=== PATIENT | male | born 1960 | race Caucasian/White ===

== ENCOUNTER 2016-11-12 10:19 | Inpatient (IN) | payer SELFPAY ==
[2016-11-12] MEDS ORDERED: LIDOCAINE 2% VISCOUS SOLN 20 ML UDCUP PO ONE (11:20)
[2016-11-12] MEDS ORDERED: MAG HYDROX/AL HYDROX/SIMETH SUSP 30 ML UDCUP PO ONE (11:20)
--- NOTE | 2016-11-12 11:21 | ER Document Report ---
ED General - General Mode of Arrival: Ambulatory Information source: Patient - HPI Patient complains to provider of: Esophageal irritation and epigastric abdominal pain Onset: Other - 4-5 days ago Associated symptoms: Other - see above <JOCELYNN MOSES - Last Filed: 11/12/16 11:29> <JS EL - Last Filed: 11/12/16 12:07> - General Chief Complaint: Chest Wall Pain Stated Complaint: CHEST PAIN Notes: 56 year old male with no prior medical problems presents to the ED complaining of having esophageal irritation and epigastric abdominal pain for the past 4-5 days. Patient states that he recently had a tooth abscess that he was treating with ibuprofen and Tylenol. Patient claims that he has been taking a lot of Tylenol and ibuprofen and states that he finished a whole bottle of Tylenol in the past 5 days. Patient also claims to have been taking Amoxicillin from his room mate for the tooth abscess. Patient states that the abscess has cleared up , but he began to experience epigastric abdominal pain and cramping and lightheadedness shortly after. Patient has taken lacy seltzer and antacid secondary to the acid reflux he is developing. Patient admits to cigarette smoking (1 ppd) and states that he quit drinking 1 week ago when his abdominal symptoms began. (JOCELYNN MOSES) - Related Data Allergies/Adverse Reactions: No Known Allergies Allergy (Unverified 11/12/16 11:10) Past Medical History - General Information source: Patient - Social History Smoking Status: Current Every Day Smoker Cigarette use (# per day): Yes - 1 ppd Frequency of alcohol use: former Family History: Reviewed & Not Pertinent - Medical History Medical History: Negative Surgical Hx: Negative <JOCELYNN MOSES - Last Filed: 11/12/16 11:29> Review of Systems - Review of Systems Constitutional: See HPI, Recent illness - tooth abscess EENT: No symptoms reported Cardiovascular: See HPI, Lightheaded Respiratory: No symptoms reported Gastrointestinal: See HPI, Abdominal pain - epigastric abdominal pain and cramping, Other - acid reflux Genitourinary: No symptoms reported Male Genitourinary: No symptoms reported Musculoskeletal: No symptoms reported Skin: No symptoms reported Hematologic/Lymphatic: No symptoms reported Neurological/Psychological: No symptoms reported -: Yes All other systems reviewed and negative <JOCELYNN MOSES - Last Filed: 11/12/16 11:29> Physical Exam - General General appearance: Alert In distress: None - HEENT Head: Normocephalic, Atraumatic Eyes: Normal Extraocular movements intact: Yes Pupils: PERRL - Respiratory Respiratory status: No respiratory distress Breath sounds: Normal - Cardiovascular Rhythm: Regular Heart sounds: No: Normal auscultation Murmur: Yes - loud split S1 systolic murmur - Abdominal Inspection: Normal Distension: No distension Tenderness: Tender - epigastric - Back Back: Normal - Extremities General upper extremity: Normal inspection, Normal ROM General lower extremity: Normal inspection, Normal ROM - Neurological Neuro grossly intact: Yes - Psychological Associated symptoms: Normal affect, Normal mood - Skin Skin Temperature: Warm Skin Moisture: Dry Skin Color: Normal <JOCELYNN MOSES - Last Filed: 11/12/16 11:29> <JS EL - Last Filed: 11/12/16 12:07> - Vital signs Vitals: Temp Pulse Resp BP Pulse Ox 97.9 F 100 18 142/78 H 100 11/12/16 10:23 11/12/16 10:23 11/12/16 10:23 11/12/16 10:23 11/12/16 10:23 (JOCELYNN MOSES) (JS EL) Course - Laboratory Result Diagrams: 11/12/16 11:00 11/12/16 11:00 <JOCELYNN MOSES - Last Filed: 11/12/16 11:29> - Laboratory Result Diagrams: 11/12/16 11:00 11/12/16 11:00 - EKG Interpretation by Me EKG shows normal: Sinus rhythm, [place], Intervals, QRS Complexes, ST-T Waves Rate: Normal - 91 Rhythm: NSR When compared to previous EKG there are: Previous EKG unavailable - Consults Dr. Pablo Time consulted: 12:00 Consulted provider: will come to ER Dr. Uriarte Time consulted: 12:05 Consulted provider: will see as inpatient <JS EL - Last Filed: 11/12/16 12:07> - Vital Signs Vital signs: Temp Pulse Resp BP Pulse Ox 97.9 F 100 13 142/78 H 94 11/12/16 10:23 11/12/16 10:23 11/12/16 11:02 11/12/16 10:23 11/12/16 11:02 (JOCELYNN MOSES) (JS EL) - Laboratory Laboratory results interpreted by me: 11/12/16 11/12/16 11/12/16 11:00 11:00 11:50 RBC 1.94 L Hgb 6.7 L Hct 18.9 L MCH 34.4 H Potassium 3.5 L Carbon Dioxide 31 H BUN 22 H Glucose 111 H Total Protein 6.1 L Albumin 3.2 L Crossmatch See Detail (JS EL) Critical Care Note - Critical Care Note Total time excluding time spent on procedures (mins): 30 <JS EL - Last Filed: 11/12/16 12:07> Discharge <JOCELYNN MOSES - Last Filed: 11/12/16 11:29> - Discharge Admitting Provider: Hospitalist Unit Admitted: IMCU <JS EL - Last Filed: 11/12/16 12:07> - Discharge Clinical Impression: Upper GI bleed, Acute blood loss anemia Condition: Stable Disposition: ADMITTED INPATIENT Scribe Attestation: 11/12/16 12:04 I personally performed the services described in the documentation, reviewed and edited the documentation which was dictated to the scribe in my presence, and it accurately records my words and actions. (JS EL) Scribe Documentation - Scribe Written by Denie:: Luis Marshall, 11/12/2016 1139 acting as scribe for :: Linda <JOCELYNN MOSES - Last Filed: 11/12/16 11:29>
[2016-11-12 11:29] LABS: ABSOLUTE EOSINOPHILS # (AUTO) 0.1 10^3/uL (0.0-0.6); ABSOLUTE LYMPHOCYTES (AUTO) 1.9 10^3/uL (0.5-4.7); ABSOLUTE NEUT (AUTO) 5.9 10^3/uL (1.7-8.2); BASOPHILS % (AUTO) 0.5 % (0-2); EOSINOPHILS % (AUTO) 1.1 % (0-6); HEMATOCRIT 18.9 % (37.9-51.0); HGB HCT DIFFERENCE 1.2; LYMPHOCYTES % (AUTO) 20.8 % (13-45); MEAN CORPUSCULAR HEMOGLOBIN 34.4 pg (27.0-33.4); MEAN CORPUSCULAR HGB CONC 35.4 g/dL (32.0-36.0); MEAN CORPUSCULAR VOLUME 97 fl (80-97); MONOCYTES % (AUTO) 11.2 % (3-13); RED BLOOD COUNT 1.94 10^6/uL (4.35-5.55); RED CELL DISTRIBUTION WIDTH 13.7 % (11.5-14.0); SEGMENTED NEUTROPHILS % (AUTO) 66.4 % (42-78)
[2016-11-12 11:32] LABS: HEMOGLOBIN 6.7 g/dL (13.5-17.0)
[2016-11-12 11:36] LABS: ALANINE AMINOTRANSFERASE 42 U/L (21-72); ALBUMIN 3.2 g/dL (3.5-5.0); ALKALINE PHOSPHATASE 54 U/L (38-126); ANION GAP 5 (5-19); ASPARTATE AMINO TRANSFERASE 34 U/L (17-59); BILIRUBIN,TOTAL 0.3 mg/dL (0.2-1.3); BLOOD UREA NITROGEN 22 mg/dL (7-20); CALCIUM 8.6 mg/dL (8.4-10.2); CARBON DIOXIDE 31 mmol/L (22-30); CHLORIDE 102 mmol/L (98-107); CREATININE RESULT 0.78 mg/dL (0.52-1.25); GLUCOSE 111 mg/dL (75-110); LIPASE 76.7 U/L (23-300); POTASSIUM 3.5 mmol/L (3.6-5.0); SODIUM 137.5 mmol/L (137-145); TOTAL PROTEIN 6.1 g/dL (6.3-8.2)
[2016-11-12] MEDS ORDERED: NORMAL SALINE 250 ML IV PRN (11:36)
[2016-11-12] MEDS ORDERED: NORMAL SALINE 1000 ML 1,000 ML IV ONE ×2 (11:37→13:44)
[2016-11-12] MEDS ORDERED: PANTOPRAZOLE SODIUM 40 MG VIAL IV ONE (11:39)
[2016-11-12] MEDS ORDERED: MORPHINE SULFATE 10 MG/ML INJ IV ONE (12:07)
[2016-11-12] MEDS ORDERED: ONDANSETRON HCL INJ/PF 4 MG/2 ML SDV IV ONE (12:07)
[2016-11-12] MEDS ORDERED: ONDANSETRON HCL INJ/PF 4 MG/2 ML SDV IV PRN (13:39)
--- NOTE | 2016-11-12 14:07 | PDOC H&P ---
History of Present Illness Admission Date/PCP: 11/12/16 13:36 Patient complains of: Lightheadedness History of Present Illness: AMAYA DYE is a 56 year old male, with a history of gastroesophageal reflux disease presents to the hospital because of lightheadedness about 2 days duration. The patient reports that about a week ago he was suffering from dental abscess were he has taken amoxicillin and eventual frequent ibuprofen use and acetaminophen. 5 days ago patient started to develop epigastric pain and melena. There is a little bit of nausea but no vomiting. Patient still able to eat regular food. Yesterday patient started to develop lightheadedness. The patient continues to work and apparently the lightheadedness got worse which the patient presents to the emergency room. Hemoglobin is 6.7. The patient was then referred for admission. There is no hematochezia, hematemesis, syncope, or dizziness. The patient's toothache and jaw pain resolved. There is no chills or fever associated. He denies any chest pain. He does have shortness of breath on exertion for the past 2 days. Past Medical History GI Medical History: Reports: Gastroesophageal Reflux Disease Past Surgical History Past Surgical History: Reports: None Social History Information Source: Patient Smoking Status: Current Every Day Smoker Amount of Alcoholic Beverages Per Day: moderate, 2-3 cans of beer, last intake about a week ago. Hx Recreational Drug Use: No Drugs: None Family History Family History: DM, Other - Heart disease Parental Family History Reviewed: Yes Children Family History Reviewed: Yes Sibling(s) Family History Reviewed.: Yes Medication/Allergy Allergies/Adverse Reactions: No Known Allergies Allergy (Unverified 11/12/16 11:10) Review of Systems Constitutional: PRESENT: weakness - Generalized. ABSENT: chills, fever(s), headache(s), weight gain, weight loss Eyes: ABSENT: visual disturbances Ears: ABSENT: hearing changes Nose, Mouth, and Throat: PRESENT: mouth pain - Resolved. ABSENT: headache(s), sore throat Cardiovascular: PRESENT: dyspnea on exertion. ABSENT: chest pain, edema, orthropnea, palpitations Respiratory: ABSENT: cough, hemoptysis Gastrointestinal: PRESENT: abdominal pain, melena, nausea. ABSENT: coffee ground emesis, constipation, diarrhea, hematemesis, hematochezia, vomiting Genitourinary: ABSENT: difficulty urinating, dysuria, hematuria Musculoskeletal: ABSENT: joint swelling Integumentary: ABSENT: pruritus, rash, wounds Neurological: ABSENT: abnormal gait, abnormal speech, confusion, dizziness, focal weakness, syncope Psychiatric: ABSENT: anxiety, depression, homidical ideation, suicidal ideation Endocrine: ABSENT: cold intolerance, heat intolerance, polydipsia, polyuria Hematologic/Lymphatic: ABSENT: easy bleeding, easy bruising Physical Exam Vital Signs: Temp Pulse Resp BP Pulse Ox 97.9 F 100 18 139/87 H 97 11/12/16 10:23 11/12/16 10:23 11/12/16 13:01 11/12/16 13:00 11/12/16 13:01 General appearance: PRESENT: no acute distress, cooperative, well-developed, well-nourished Head exam: PRESENT: atraumatic, normocephalic Eye exam: PRESENT: conjunctiva pale, EOMI, PERRLA. ABSENT: scleral icterus Ear exam: PRESENT: normal external ear exam. ABSENT: drainage Mouth exam: PRESENT: moist, tongue midline Teeth exam: PRESENT: dental caries Throat exam: ABSENT: post pharyngeal erythema, tonsillar erythema Neck exam: ABSENT: carotid bruit, JVD, lymphadenopathy, thyromegaly Respiratory exam: PRESENT: clear to auscultation susan, unlabored. ABSENT: rales , rhonchi, wheezes Cardiovascular exam: PRESENT: RRR, +S1, +S2, systolic murmur - On the aortic area likely flow murmur. ABSENT: diastolic murmur, gallop, rubs Pulses: PRESENT: normal dorsalis pedis pul Vascular exam: PRESENT: normal capillary refill GI/Abdominal exam: PRESENT: normal bowel sounds, soft, tenderness - Epigastric area. ABSENT: distended, guarding, mass, organolmegaly, rebound Rectal exam: PRESENT: deferred Extremities exam: PRESENT: full ROM. ABSENT: calf tenderness, clubbing, pedal edema Neurological exam: PRESENT: alert, awake, oriented to person, oriented to place , oriented to time, oriented to situation Psychiatric exam: PRESENT: appropriate affect, normal mood. ABSENT: homicidal ideation, suicidal ideation Skin exam: PRESENT: dry, intact, warm. ABSENT: cyanosis, rash Results Impressions: Acute Abdomen Series 11/12/16 12:05 IMPRESSION: NO RADIOGRAPHIC EVIDENCE FOR ACUTE ABDOMINAL DISEASE. Assessment & Plan - Diagnosis (1) Acute blood loss anemia Is this a current diagnosis for this admission?: Yes (2) Upper GI bleed Is this a current diagnosis for this admission?: Yes (3) Hypokalemia Is this a current diagnosis for this admission?: Yes (4) GERD (gastroesophageal reflux disease) Qualifiers: Esophagitis presence: esophagitis presence not specified Qualified Code(s): K21.9 - Gastro-esophageal reflux disease without esophagitis Is this a current diagnosis for this admission?: Yes - Time Time Spent: 50 to 70 Minutes - Inpatient Certification Based on my medical assessment, after consideration of the patient's comorbidities, presenting symptoms, or acuity I expect that the services needed warrant INPATIENT care.: Yes I certify that my determination is in accordance with my understanding of Medicare's requirements for reasonable and necessary INPATIENT services [42 CFR 412.3e].: Yes Medical Necessity: Significant Comorbidiites Make Outpatient Treatment Too Risky , Need Close Monitoring Due to Risk of Patient Decompensation, Need For IV Fluids, Need for Surgery, Risk of Complication if Not Cared For in Hospital, Risk of Diagnosis Which Will Require Inpatient Eval/Care/Monitoring - Plan Summary Plan Summary: The patient will be admitted to [facility]. I will keep the patient nothing by mouth except medication. Loading dose of Protonix was given in the emergency room. We will continue the drip for 8 mg per hour. Gastroenterology was consulted. Dr. Uriarte will evaluate the patient. In the meantime I will correct the patient 's hypokalemia and monitor electrolytes. TORIE hose and SCDs will be placed for DVT prophylaxis. Total of 3 units of packed RBC will be given. Further testing depends on the initial evaluation and per specialty recommendation as outlined above.
[2016-11-12] MEDS: NORMAL SALINE 1000 ML 1,000 ML IV PRN ×2 (15:09→16:49)
[2016-11-12] MEDS: POTASSI CL 20 MEQ/50 ML RIDER 20 MEQ/50 ML RTUPB IV SCH ×3 (16:45→20:26)
[2016-11-12] MEDS ORDERED: INFLUENZA ADLT QUAD (36MOS+) 2016-17 VAC 0.5 ML SYR IM PRN (17:28)
--- NOTE | 2016-11-12 19:29 | PDOC CONSULTATION ---
Consultation Consult Date: 11/12/16 Attending physician:: STAS TRIPP Consult reason:: Acute anemia secondary to upper GI blood loss History of Present Illness Admission Date/PCP: 11/12/16 13:39 History of Present Illness: Consult was received from the hospitalist physician. Patient presented to the emergency room when he started to feel lightheaded. He had been taking several days of a combination of NSAIDs along with Tylenol for her toothache. He apparently admits that he got some antibiotics from his neighbor. It did make his tooth pain better but then started to develop epigastric pain. He then had coffee grounds and passed some black stool. He was admitted from the emergency room. His hemoglobin is 6.7. He is otherwise stable. He does have a history of gastroesophageal reflux disease. He denies any chest pain or shortness of breath. Patient states no nausea or vomiting. Denies any dysphagia or odynophagia. Past Medical History GI Medical History: Reports: Gastroesophageal Reflux Disease Past Surgical History Past Surgical History: Reports: None Social History Smoking Status: Current Every Day Smoker Cigarettes Packs Per Day: 1 Frequency of Alcohol Use: Occasional Hx Recreational Drug Use: No Drugs: None Hx Prescription Drug Abuse: No Family History Family History: DM, Other - Heart disease Parental Family History Reviewed: Yes Children Family History Reviewed: Unknown Sibling(s) Family History Reviewed.: Unknown Medication/Allergy Home Medications: No Home Medications 11/12/16 Allergies/Adverse Reactions: No Known Allergies Allergy (Unverified 11/12/16 11:10) Review of Systems Constitutional: PRESENT: weakness. ABSENT: fever(s), headache(s), night sweats Eyes: ABSENT: visual disturbances Ears: ABSENT: hearing changes Nose, Mouth, and Throat: PRESENT: mouth pain Cardiovascular: ABSENT: chest pain, orthropnea, palpitations Respiratory: ABSENT: dyspnea, hemoptysis Gastrointestinal: PRESENT: heartburn, melena. ABSENT: diarrhea, dysphagia, hematemesis, nausea, vomiting Genitourinary: ABSENT: dysuria, hematuria Musculoskeletal: ABSENT: joint swelling Integumentary: ABSENT: pruritus, rash Neurological: ABSENT: numbness, syncope, tremor(s), vertigo Psychiatric: ABSENT: anxiety Endocrine: ABSENT: polydipsia, polyphagia, polyuria Hematologic/Lymphatic: ABSENT: easy bruising Physical Exam Vital Signs: Temp Pulse Resp BP Pulse Ox 99.7 F 93 14 111/65 95 11/12/16 16:50 11/12/16 18:48 11/12/16 16:50 11/12/16 16:50 11/12/16 16:50 Intake & Output 11/11/16 11/12/16 11/13/16 06:59 06:59 06:59 Intake Total 775 Output Total 0 Balance 775 Weight 70.6 kg General appearance: PRESENT: no acute distress, thin Head exam: PRESENT: atraumatic, normocephalic Eye exam: PRESENT: EOMI, PERRLA. ABSENT: nystagmus, periorbital swelling, scleral icterus Mouth exam: PRESENT: moist, neck supple Teeth exam: PRESENT: dental tenderness, poor dentation Throat exam: ABSENT: tonsillogmegaly Neck exam: ABSENT: meningismus, tenderness, thyromegaly Respiratory exam: PRESENT: clear to auscultation susan, symmetrical, unlabored. ABSENT: accessory muscle use, wheezes Cardiovascular exam: PRESENT: RRR, +S1, +S2. ABSENT: gallop, rubs, systolic murmur Pulses: PRESENT: normal carotid pulses GI/Abdominal exam: PRESENT: hypoactive bowel sounds, soft. ABSENT: Tamez's sign, rebound, rigid, tenderness Gentrourinary exam: ABSENT: lesions Extremities exam: ABSENT: joint swelling Musculoskeletal exam: PRESENT: full ROM Neurological exam: PRESENT: alert, awake, oriented to person, oriented to place , oriented to time, oriented to situation, reflexes normal, CN II-XII grossly intact Psychiatric exam: PRESENT: appropriate affect Skin exam: PRESENT: normal color. ABSENT: mottled, pallor, petechiae, urticaria , vesicles Results Impressions: Acute Abdomen Series 11/12/16 12:05 IMPRESSION: NO RADIOGRAPHIC EVIDENCE FOR ACUTE ABDOMINAL DISEASE. Assessment & Plan - Diagnosis (1) Upper GI bleed Is this a current diagnosis for this admission?: YesPlan: Patient likely has upper GI bleeding. Due to NSAID use. He'll need an upper endoscopy. He does have an elevated BUN/creatinine to creatinine ratio. Risks , benefits and alternatives of the procedure including risks of bleeding, perforation requiring surgery I explained to the patient detail and informed consent is obtained. Patient wants to proceed. Continue transfusion. Start PPI. - Time Time Spent: 50 to 70 Minutes
[2016-11-12] MEDS: ACETAMINOPHEN 325 MG TABLET PO PRN (19:46)
--- NOTE | 2016-11-12 21:37 | EKG REPORT ---
SEVERITY:- NORMAL ECG - SINUS RHYTHM : Confirmed by: Darren Carrasco 12-Nov-2016 21:36:11
[2016-11-12] MEDS: NORMAL SALINE 100 ML with PANTOPRAZOLE SODIUM 80 MG IV PRN ×2 (22:24)
[2016-11-13 01:53] LABS: ABSOLUTE EOSINOPHILS # (AUTO) 0.1 10^3/uL (0.0-0.6); ABSOLUTE LYMPHOCYTES (AUTO) 2.4 10^3/uL (0.5-4.7); ABSOLUTE MONOCYTES (AUTO) 1.2 10^3/uL (0.1-1.4); ABSOLUTE NEUT (AUTO) 6.1 10^3/uL (1.7-8.2); BASOPHILS % (AUTO) 0.4 % (0-2); EOSINOPHILS % (AUTO) 1.3 % (0-6); HEMATOCRIT 23.5 % (37.9-51.0); HEMOGLOBIN 8.1 g/dL (13.5-17.0); HGB HCT DIFFERENCE 0.8; LYMPHOCYTES % (AUTO) 24.1 % (13-45); MEAN CORPUSCULAR HEMOGLOBIN 32.5 pg (27.0-33.4); MEAN CORPUSCULAR HGB CONC 34.4 g/dL (32.0-36.0); MEAN CORPUSCULAR VOLUME 95 fl (80-97); MONOCYTES % (AUTO) 12.5 % (3-13); RED BLOOD COUNT 2.49 10^6/uL (4.35-5.55); RED CELL DISTRIBUTION WIDTH 14.6 % (11.5-14.0); SEGMENTED NEUTROPHILS % (AUTO) 61.7 % (42-78); WHITE BLOOD COUNT 9.9 10^3/uL (4.0-10.5)
[2016-11-13 05:20] LABS: ABSOLUTE BASOPHILS # (AUTO) 0.1 10^3/uL (0.0-0.2); ABSOLUTE EOSINOPHILS # (AUTO) 0.1 10^3/uL (0.0-0.6); ABSOLUTE LYMPHOCYTES (AUTO) 2.3 10^3/uL (0.5-4.7); ABSOLUTE MONOCYTES (AUTO) 1.3 10^3/uL (0.1-1.4); ABSOLUTE NEUT (AUTO) 6.7 10^3/uL (1.7-8.2); BASOPHILS % (AUTO) 0.5 % (0-2); EOSINOPHILS % (AUTO) 1.2 % (0-6); HEMATOCRIT 23.9 % (37.9-51.0); HEMOGLOBIN 8.2 g/dL (13.5-17.0); HGB HCT DIFFERENCE 0.7; MEAN CORPUSCULAR HEMOGLOBIN 32.8 pg (27.0-33.4); MEAN CORPUSCULAR HGB CONC 34.5 g/dL (32.0-36.0); MEAN CORPUSCULAR VOLUME 95 fl (80-97); MONOCYTES % (AUTO) 12.5 % (3-13); RED BLOOD COUNT 2.52 10^6/uL (4.35-5.55); RED CELL DISTRIBUTION WIDTH 15.1 % (11.5-14.0); SEGMENTED NEUTROPHILS % (AUTO) 63.8 % (42-78); WHITE BLOOD COUNT 10.5 10^3/uL (4.0-10.5)
[2016-11-13 05:39] LABS: ANION GAP 5 (5-19); BLOOD UREA NITROGEN 13 mg/dL (7-20); CALCIUM 8.7 mg/dL (8.4-10.2); CARBON DIOXIDE 26 mmol/L (22-30); CHLORIDE 107 mmol/L (98-107); CREATININE RESULT 0.78 mg/dL (0.52-1.25); GLUCOSE 91 mg/dL (75-110); PHOSPHORUS 3.2 mg/dL (2.5-4.5); SODIUM 137.5 mmol/L (137-145)
[2016-11-13] MEDS: ACETAMINOPHEN 325 MG TABLET PO PRN (05:39)
[2016-11-13 05:48] LABS: POTASSIUM 4.4 mmol/L (3.6-5.0)
[2016-11-13] MEDS: NORMAL SALINE 100 ML with PANTOPRAZOLE SODIUM 80 MG IV PRN ×2 (07:01)
[2016-11-13] MEDS ORDERED: TRAMADOL HCL 50 MG TABLET PO PRN (10:38)
[2016-11-13] MEDS: NORMAL SALINE 1000 ML 1,000 ML IV PRN ×2 (10:43→15:23)
[2016-11-13] MEDS ORDERED: NALOXONE HCL INJ/PF 0.4 MG/1 ML SDV ONE (13:29)
[2016-11-13] MEDS ORDERED: ONDANSETRON HCL INJ/PF 4 MG/2 ML SDV ONE (13:30)
[2016-11-13] MEDS ORDERED: FENTANYL CITRATE INJ/PF 100 MCG/2 ML AMPUL ONE (13:30)
[2016-11-13] MEDS ORDERED: PROMETHAZINE HCL INJ 25 MG/1 ML VIAL ONE (13:30)
[2016-11-13] MEDS ORDERED: DIPHENHYDRAMINE HCL 50 MG/ML VIAL ONE (13:30)
[2016-11-13] MEDS ORDERED: GLUCAGON,HUMAN RECOMB 1 MG INJ ONE (13:31)
[2016-11-13] MEDS ORDERED: FLUMAZENIL INJ 0.5 MG/5 ML VIAL IV ONE (13:31)
[2016-11-13] MEDS ORDERED: EPINEPHRINE INJ 1 MG/10 ML DISP.SYRIN ONE (13:31)
[2016-11-13] MEDS: MIDAZOLAM 2 MG/2 ML INJ ONE ×2 (13:33→13:40)
--- NOTE | 2016-11-13 13:49 | Operative Report ---
Operative Report DATE OF SURGERY: 11/13/16 Operative Report: The risks benefits and alternatives of the procedure explained to the patient in detail and informed consent is obtained that GIF Olympus video scope was inserted into the patient's mouth and hypopharynx the esophagus is identified intubated and insufflated the scope was then advanced through the esophagus stomach and duodenum retroflexion maneuver is done the esophagus stomach and first and second portions of the duodenum examined PREOPERATIVE DIAGNOSIS: GI bleeding, melena POSTOPERATIVE DIAGNOSIS: Erosive esophagitis. Gastritis. Duodenitis. Large, clean base antral ulcer no active bleeding OPERATION: EGD with biopsy SURGEON: STAS TRIPP ANESTHESIA: Moderate Sedation - 4 mg of Versed, 100 g of fentanyl. Conscious sedation monitoring time 15 minutes. TISSUE REMOVED OR ALTERED: Gastric specimen 2 rule out Helicobacter pylori COMPLICATIONS: None. ESTIMATED BLOOD LOSS: none. INTRAOPERATIVE FINDINGS: As described above. PROCEDURE: Patient tolerated procedure well. No immediate post procedure complications are noted. Patient is discharged in good condition. Discharge back to patient room. Resume clear liquid diet advance as tolerated Avoid NSAIDs If no further bleeding can likely be discharged tomorrow Follow H&H Transfuse as necessary Outpatient follow-up endoscopy in 6 weeks to determine healing We'll await biopsies to treat for Helicobacter pylori if necessary PPI on discharge
[2016-11-13] MEDS: SUCRALFATE SUSP 1 GM/10 ML UDCUP PO SCH (22:07)
--- NOTE | 2016-11-14 00:11 | PDOC PROGRESS REPORT ---
Subjective Progress Note for:: 11/13/16 Subjective:: Patient seen after endoscopy this afternoon. Patient reports he tolerated procedure well. Patient and I discussed findings has reported on operative report. Patient denies chest pain, shortness of breath, abdominal pain, nausea, vomiting , fevers, chills, diarrhea, constipation, headache, new onset weakness. Patient also denies hemoptysis, hematochezia, melena, or hematemesis. Physical Exam Vital Signs: Temp Pulse Resp BP Pulse Ox 98.7 F 89 15 104/72 96 11/13/16 05:04 11/13/16 05:04 11/13/16 05:04 11/13/16 05:04 11/13/16 05:04 Intake & Output 11/12/16 11/13/16 11/14/16 06:59 06:59 06:59 Intake Total 1075 Output Total 0 Balance 1075 Weight 70.6 kg Exam: General: Awake alert and oriented x3, no acute respiratory distress HEENT: AT/NC, PERRL, EOMI, oropharynx is moist, pink, no scleral icterus, no conjunctival injection Neck: No JVD, trachea midline Chest: Clear to auscultation bilaterally, no wheezes rhonchi or rales CV: Regular rate and rhythm, normal S1 and S2, no murmur, rub, or gallop Abdomen: Soft, nontender to palpation, nondistended, active bowel sounds; no rebound, rigidity, or guarding Extremities: No cyanosis, clubbing or edema Neuro: Cranial nerves II through XII are grossly intact without focal deficits; awake alert and oriented x3 Psych: Normal mood and affect Results Laboratory Results: 11/13/16 04:45 11/13/16 04:45 11/13/16 11/13/16 11/13/16 01:36 04:45 04:45 WBC 9.9 10.5 RBC 2.49 L 2.52 L Hgb 8.1 L 8.2 L Hct 23.5 L 23.9 L MCV 95 95 MCH 32.5 32.8 MCHC 34.4 34.5 RDW 14.6 H 15.1 H Plt Count 166 180 Seg Neutrophils % 61.7 63.8 Lymphocytes % 24.1 22.0 Monocytes % 12.5 12.5 Eosinophils % 1.3 1.2 Basophils % 0.4 0.5 Absolute Neutrophils 6.1 6.7 Absolute Lymphocytes 2.4 2.3 Absolute Monocytes 1.2 1.3 Absolute Eosinophils 0.1 0.1 Absolute Basophils 0.0 0.1 Sodium 137.5 Potassium 4.4 Chloride 107 Carbon Dioxide 26 Anion Gap 5 BUN 13 Creatinine 0.78 Est GFR ( Amer) > 60 Est GFR (Non-Af Amer) > 60 Glucose 91 Calcium 8.7 Phosphorus 3.2 Magnesium 2.0 Impressions: Acute Abdomen Series 11/12/16 12:05 IMPRESSION: NO RADIOGRAPHIC EVIDENCE FOR ACUTE ABDOMINAL DISEASE. Assessment & Plan - Diagnosis (1) Gastric ulcer Qualifiers: Gastric ulcer chronicity: acute Gastric ulcer complication status: without hemorrhage or perforation Qualified Code(s): K25.3 - Acute gastric ulcer without hemorrhage or perforation Is this a current diagnosis for this admission?: YesPlan: Found to have gastric ulcer and gastritis likely secondary to his overuse of NSAIDs. We'll transition patient to Prevacid oral twice a day and will give Carafate. Will advance patient's diet as tolerated and if is able to tolerate diet tomorrow will likely be discharged in a.m. (2) Gastritis determined by endoscopy Is this a current diagnosis for this admission?: Yes (3) Acute blood loss anemia Is this a current diagnosis for this admission?: YesPlan: Patient has been transfused 2 units of packed red blood cells. He has kept these. Will repeat CBC in a.m. (4) Upper GI bleed Is this a current diagnosis for this admission?: Yes - Time Time Spent with patient: 25-34 minutes Medications reviewed and adjusted accordingly: Yes Anticipated discharge: Home Within: within 24 hours
[2016-11-14] MEDS: NORMAL SALINE 1000 ML 1,000 ML IV PRN (01:07)
[2016-11-14] MEDS ORDERED: LANSOPRAZOLE 30 MG TAB.RAP.DR PO SCH (06:00)
[2016-11-14 06:58] LABS: ABSOLUTE BASOPHILS # (AUTO) 0.1 10^3/uL (0.0-0.2); ABSOLUTE EOSINOPHILS # (AUTO) 0.2 10^3/uL (0.0-0.6); ABSOLUTE LYMPHOCYTES (AUTO) 1.7 10^3/uL (0.5-4.7); ABSOLUTE MONOCYTES (AUTO) 1.6 10^3/uL (0.1-1.4); ABSOLUTE NEUT (AUTO) 7.4 10^3/uL (1.7-8.2); BASOPHILS % (AUTO) 0.8 % (0-2); EOSINOPHILS % (AUTO) 1.6 % (0-6); HEMATOCRIT 26.5 % (37.9-51.0); HGB HCT DIFFERENCE 0.5; LYMPHOCYTES % (AUTO) 15.2 % (13-45); MEAN CORPUSCULAR HEMOGLOBIN 32.7 pg (27.0-33.4); MEAN CORPUSCULAR HGB CONC 34.1 g/dL (32.0-36.0); MEAN CORPUSCULAR VOLUME 96 fl (80-97); MONOCYTES % (AUTO) 14.4 % (3-13); RED BLOOD COUNT 2.76 10^6/uL (4.35-5.55); WHITE BLOOD COUNT 10.9 10^3/uL (4.0-10.5)
[2016-11-14 09:54] VITALS: BP 129/77
[2016-11-14] MEDS: SUCRALFATE SUSP 1 GM/10 ML UDCUP PO SCH (10:06)
--- NOTE | 2016-11-14 20:05 | PDOC DISCHARGE SUMMARY ---
General - Admit/Disc Date/PCP Admission Date/Primary Care Provider: 11/12/16 13:39 Discharge Date: 11/14/16 - Discharge Diagnosis (1) Gastric ulcer Is this a current diagnosis for this admission?: Yes (2) Gastritis determined by endoscopy Is this a current diagnosis for this admission?: Yes (3) Acute blood loss anemia Is this a current diagnosis for this admission?: Yes (4) Upper GI bleed Is this a current diagnosis for this admission?: Yes (5) Tobacco abuse Is this a current diagnosis for this admission?: Yes - Additional Information Resuscitation Status: Full Code Discharge Diet: Regular Discharge Activity: Activity As Tolerated Home Medications: Omeprazole 20 mg PO BID #60 tablet. 11/14/16 Tramadol HCl [Ultram 50 mg Tablet] 50 mg PO Q6HP PRN #10 tablet 11/14/16 History of Present Illness History of Present Illness: AMAYA DYE is a 56 year old malewith a history of gastroesophageal reflux disease presents to the hospital because of lightheadedness about 2 days duration. The patient reports that about a week ago he was suffering from dental abscess were he has taken amoxicillin and eventual frequent ibuprofen use and acetaminophen. 5 days ago patient started to develop epigastric pain and melena. There is a little bit of nausea but no vomiting. Patient still able to eat regular food. Yesterday patient started to develop lightheadedness. The patient continues to work and apparently the lightheadedness got worse which the patient presents to the emergency room. Hemoglobin is 6.7. The patient was then referred for admission. There is no hematochezia, hematemesis, syncope, or dizziness. The patient's toothache and jaw pain resolved. There is no chills or fever associated. He denies any chest pain. He does have shortness of breath on exertion for the past 2 days. Hospital Course Hospital Course: She was transfused 2 units which he held. Patient underwent endoscopy which revealed ulceration as well as gastritis and esophagitis. Patient was transitioned to clear liquids then full then regular food without a drop in hemoglobin. And patient had no recurrent melena. Discussions were had with patient currently avoid NSAIDs of which she was taking ibuprofen as well as Goody powders. Patient is advised to avoid these. Patient is devised follow a low acid diet and to stop smoking. Patient is given prescription for PPI. Patient is advised to follow-up for document resolution of his ulceration. Patient is also strongly encouraged to undergo routine colonoscopy screening. Physical Exam Vital Signs: Temp Pulse Resp BP Pulse Ox 98.2 F 85 20 140/68 H 94 11/14/16 03:19 11/14/16 07:00 11/14/16 03:19 11/14/16 03:19 11/14/16 03:19 Intake & Output 11/13/16 11/14/16 11/15/16 06:59 06:59 06:59 Intake Total 1075 3112 Output Total 0 650 Balance 1075 2462 Weight 70.6 kg 72.1 kg Exam: General: Awake alert and oriented x3, no acute respiratory distress HEENT: AT/NC, PERRL, EOMI, oropharynx is moist, pink, no scleral icterus, no conjunctival injection Neck: No JVD, trachea midline Chest: Clear to auscultation bilaterally, no wheezes rhonchi or rales CV: Regular rate and rhythm, normal S1 and S2, no murmur, rub, or gallop Abdomen: Soft, nontender to palpation, nondistended, active bowel sounds; no rebound, rigidity, or guarding Extremities: No cyanosis, clubbing or edema Neuro: Cranial nerves II through XII are grossly intact without focal deficits; awake alert and oriented x3 Psych: Normal mood and affect Results Laboratory Results: 11/14/16 06:18 11/13/16 04:45 11/14/16 06:18 WBC 10.9 H RBC 2.76 L Hgb 9.0 L Hct 26.5 L MCV 96 MCH 32.7 MCHC 34.1 RDW 15.0 H Plt Count 236 Seg Neutrophils % 68.0 Lymphocytes % 15.2 Monocytes % 14.4 H Eosinophils % 1.6 Basophils % 0.8 Absolute Neutrophils 7.4 Absolute Lymphocytes 1.7 Absolute Monocytes 1.6 H Absolute Eosinophils 0.2 Absolute Basophils 0.1 Impressions: Acute Abdomen Series 11/12/16 12:05 IMPRESSION: NO RADIOGRAPHIC EVIDENCE FOR ACUTE ABDOMINAL DISEASE. Qualifiers PATEINT BEING DISCHARGED WITH ANY OF THE FOLLOWING DIAGNOSIS?: No Plan Time Spent: Less than 30 Minutes
== END 2016-11-14 10:30 | disposition home or self-care (01) | DRG 378 ==
LOC: ER 10:19 → UNDOADMIN 13:36 → EH 13:36 → 3W 16:24
PROVIDERS: ADMIT Emergency Medicine; ATTEND Emergency Medicine
PROC: 30233N1 Transfusion of Nonautologous Red Blood Cells into Peripheral Vein, Percutaneous Approach (ICD-10-PCS; 2016-11-12)
PROC: 0DB68ZX Excision of Stomach, Via Natural or Artificial Opening Endoscopic, Diagnostic (ICD-10-PCS; principal; 2016-11-13 14:00)
DX: K92.1 Melena (principal); D62 Acute posthemorrhagic anemia; K25.3 Acute gastric ulcer without hemorrhage or perforation; K21.9 Gastro-esophageal reflux disease without esophagitis; T39.315A Adverse effect of propionic acid derivatives, initial encounter; F17.210 Nicotine dependence, cigarettes, uncomplicated; E87.6 Hypokalemia; K29.80 Duodenitis without bleeding; K29.70 Gastritis, unspecified, without bleeding; Z83.3 Family history of diabetes mellitus; Z82.49 Family history of ischemic heart disease and other diseases of the circulatory system
CPT/HCPCS: 36415; 36430; 43239; 74022; 80048; 80053; 83690; 83735; 84100; 85025; 86850; 86900; 86901; 86920; 88305; 88342; 90686; 93005; 93010; 96361; 96374; 96375; 99291; J0171; J1200; J1610; J2250; J2270; J2310; J2405; J2550; J3010; J3480; J3490; J7030; P9016; S0164

== ENCOUNTER 2017-11-23 13:38 | Emergency (ER) | payer SELFPAY ==
--- NOTE | 2017-11-23 14:37 | RADIOLOGY REPORT (SQ) ---
EXAM DESCRIPTION: CT HEAD WITHOUT COMPLETED DATE/TIME: 11/23/2017 2:26 pm REASON FOR STUDY: damon COMPARISON: None. TECHNIQUE: Axial images acquired through the brain without intravenous contrast. Images reviewed wi th bone, brain and subdural windows. Images stored on PACS. All CT scanners at this facility use dose modulation, iterative reconstruction, and/or weight based d osing when appropriate to reduce radiation dose to as low as reasonably achievable (ALARA). [facility]: Dose Right [facility]: CareDose [facility]: Dose Right [facility]: Teradose 4D [facility]: [employer] RADIATION DOSE: CT Rad equipment meets quality standard of care and radiation dose reduction techniq ues were employed. CTDIvol: 64.6 mGy. DLP: 1292 mGy-cm. mGy. LIMITATIONS: None. FINDINGS: VENTRICLES: Normal size and contour. CEREBRUM: No masses. No hemorrhage. No midline shift. No evidence for acute infarction. Normal gra y/white matter differentiation. No areas of low density in the white matter. CEREBELLUM: No masses. No hemorrhage. No alteration of density. No evidence for acute infarction. EXTRAAXIAL SPACES: No fluid collections. No masses. ORBITS AND GLOBE: No intra- or extraconal masses. Normal contour of globe without masses. CALVARIUM: No fracture. PARANASAL SINUSES: No fluid or mucosal thickening. SOFT TISSUES: In the upper left neck, just inferior to the left jugular foramen and carotid canal, a peripheral dense calcified 2 cm nodule is present. It is unclear whether this is a old calcified cer vical lymph node, or whether this is a thrombosed aneurysm. Follow-up CT with IV contrast recommende d. OTHER: No other significant finding. IMPRESSION: No acute intracranial changes. 2 cm peripheral calcified nodule in the deep neck soft tissues high by the left skullbase. This may represent an old inflamed upper cervical lymph node. Thrombosed aneurysm could not be excluded. Con publisher assistant follow-up CT with IV contrast. EVIDENCE OF ACUTE STROKE: NO. COMMENT: Quality ID # [id number]: Final reports with documentation of one or more dose reduction techniques (e.g., Automated exposure control, adjustment of the mA and/or kV according to patient size, use of iterative reconstruction technique) TECHNICAL DOCUMENTATION: JOB ID: [id number] [employer]- All Rights Reserved Reading location - IP/workstation name: [email or web address]
[2017-11-23 17:12] LABS: ABSOLUTE BASOPHILS # (AUTO) 0.1 10^3/uL (0.0-0.2); ABSOLUTE EOSINOPHILS # (AUTO) 0.1 10^3/uL (0.0-0.6); ABSOLUTE LYMPHOCYTES (AUTO) 2.3 10^3/uL (0.5-4.7); ABSOLUTE MONOCYTES (AUTO) 1.2 10^3/uL (0.1-1.4); ABSOLUTE NEUT (AUTO) 4.7 10^3/uL (1.7-8.2); BASOPHILS % (AUTO) 0.8 % (0-2); EOSINOPHILS % (AUTO) 0.8 % (0-6); HEMATOCRIT 43.8 % (37.9-51.0); LYMPHOCYTES % (AUTO) 27.4 % (13-45); MEAN CORPUSCULAR HEMOGLOBIN 31.7 pg (27.0-33.4); MEAN CORPUSCULAR HGB CONC 34.3 g/dL (32.0-36.0); MEAN CORPUSCULAR VOLUME 93 fl (80-97); PLATELET COUNT 218 10^3/uL (150-450); RED BLOOD COUNT 4.74 10^6/uL (4.35-5.55); RED CELL DISTRIBUTION WIDTH 15.3 % (11.5-14.0); TOTAL CELLS COUNTED % (AUTO) 100 %; WHITE BLOOD COUNT 8.3 10^3/uL (4.0-10.5)
[2017-11-23 17:40] LABS: ALANINE AMINOTRANSFERASE 32 U/L (21-72); ALBUMIN 4.2 g/dL (3.5-5.0); ALKALINE PHOSPHATASE 94 U/L (38-126); ANION GAP 8 (5-19); ASPARTATE AMINO TRANSFERASE 24 U/L (17-59); BILIRUBIN,DIRECT 0.4 mg/dL (0.0-0.4); BILIRUBIN,TOTAL 0.6 mg/dL (0.2-1.3); BLOOD UREA NITROGEN 6 mg/dL (7-20); CALCIUM 9.7 mg/dL (8.4-10.2); CARBON DIOXIDE 28 mmol/L (22-30); CHLORIDE 105 mmol/L (98-107); GLUCOSE 88 mg/dL (75-110); SODIUM 141.3 mmol/L (137-145); TOTAL PROTEIN 8.4 g/dL (6.3-8.2)
--- NOTE | 2017-11-23 19:02 | RADIOLOGY REPORT (SQ) ---
EXAM DESCRIPTION: CTA HEAD COMPLETED DATE/TIME: 11/23/2017 6:03 pm REASON FOR STUDY: possible aneurysm seen on ct COMPARISON: None. TECHNIQUE: Post IV contrast scanning, thin section axial imaging through the brain to evaluate the a rterial structures. Source and MIP images are saved and reviewed on PACS. Advanced 3D imaging as volume-rendering, MIPs, SSD performed? yes All CT scanners at this facility use dose modulation, iterative reconstruction, and/or weight based d osing when appropriate to reduce radiation dose to as low as reasonably achievable (ALARA). [facility]: Dose Right [facility]: CareDose [facility]: Dose Right [facility]: Teradose 4D [facility]: [employer] CONTRAST TYPE AND DOSE: contrast/concentration: Isovue 370.00 mg/ml; Total Contrast Delivered: 70.0 ml; Total Saline Delivered: 67.0 ml RENAL FUNCTION: CREATININE 0.73 LIMITATIONS: None. FINDINGS: CAROTID ARTERIES: The patient appears to be status post endarterectomy involving the left carotid bifurcation. There is a 3.3 x 2 x 1.8 cm rim calcified aneurysm extending medially off of t he distal left internal carotid just below the skullbase. 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 Some thrombus is seen in the periphery of the aneurysm. Contrasted lumen measures approximately 1 cm in maximum dimension. There is some mild narrowing of the adjacent internal carotid. [place]: Non filling of the right A1 segment with right anterior cerebral being fed via the anterior communicator, normal variant. No evidence of significant stenosis, aneurysm or AVM involvin g the intercerebral vasculature. POSTERIOR CIRCULATION: The distal vertebral arteries are patent as is the basilar artery. No aneurysm . BRAIN: No gross enhancing lesions as visualized. The superior cerebral hemispheres are not included in the field of view. BONES: Intact as visualized. SINUSES: No fluid or mucosal thickening. OTHER: No other significant finding. IMPRESSION: 1. 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 2. Patient appears to be status post endarterectomy involving the carotid bifurcation on the left. TECHNICAL DOCUMENTATION: JOB ID: [id number] Quality ID # [id number]: Final reports with documentation of one or more dose reduction techniques (e.g., Au tomated exposure control, adjustment of the mA and/or kV according to patient size, use of iterative reconstruction technique) 2010 [employer]- All Rights Reserved Reading location - IP/workstation name: [email or web address]
--- NOTE | 2017-11-23 19:50 | ER Document Report ---
ED Blood Pressure Problem - General Chief Complaint: High Blood Pressure Stated Complaint: POSSIBLE HIGH BP Time Seen by Provider: 11/23/17 14:07 Mode of Arrival: Ambulatory Information source: Patient Notes: Patient presents complaining of diffuse headaches. As well as increased blood pressure. Nothing makes the headaches better or worse. They radiate throughout his skull. They are intermittent. They are moderate. No vomiting. No changes of vision. No trouble speaking or swallowing. No numbness tingling weakness or paresthesias. TRAVEL OUTSIDE OF THE [place] IN LAST 30 DAYS: No - Related Data Allergies/Adverse Reactions: No Known Allergies Allergy (Verified 11/23/17 13:59) Past Medical History - General Information source: Patient - Social History Smoking Status: Current Every Day Smoker Frequency of alcohol use: Occasional Drug Abuse: None Family History: DM, Other - Heart disease Patient has suicidal ideation: No Patient has homicidal ideation: No Neurological Medical History: Denies: Hx Seizures Renal/ Medical History: Denies: Hx Peritoneal Dialysis GI Medical History: Reports: Hx Gastroesophageal Reflux Disease Review of Systems - Review of Systems Constitutional: denies: Chills, Fever EENT: denies: Eye pain, Eye discharge Cardiovascular: denies: Chest pain, Palpitations Respiratory: denies: Cough, Short of breath Gastrointestinal: denies: Abdominal pain, Vomiting -: Yes All other systems reviewed and negative Physical Exam - Vital signs Vitals: Temp Pulse Resp BP Pulse Ox 98.8 F 82 19 167/109 H 98 11/23/17 13:42 11/23/17 13:42 11/23/17 13:42 11/23/17 13:42 11/23/17 13:42 Interpretation: Normal - General General appearance: Appears well, Alert In distress: None - HEENT Head: Normocephalic, Atraumatic Eyes: Normal Pupils: PERRL - Respiratory Respiratory status: No respiratory distress Chest status: Nontender Breath sounds: Normal Chest palpation: Normal - Cardiovascular Rhythm: Regular Heart sounds: Normal auscultation Murmur: No - Abdominal Inspection: Normal Distension: No distension Bowel sounds: Normal Tenderness: Nontender Organomegaly: No organomegaly - Back Back: Normal, Nontender - Extremities General upper extremity: Normal inspection, Nontender, Normal color, Normal ROM , Normal temperature General lower extremity: Normal inspection, Nontender, Normal color, Normal ROM , Normal temperature, Normal weight bearing. No: Jorge Alberto's sign - Neurological Neuro grossly intact: Yes Cognition: Normal Orientation: AAOx4 Michael Coma Scale Eye Opening: Spontaneous [place] Coma Scale Verbal: Oriented [place] Coma Scale Motor: Obeys Commands [place] Coma Scale Total: 15 Speech: Normal Cranial nerves: Normal Cerebellar coordination: Normal Motor strength normal: LUE, RUE, LLE, RLE Additional motor exam normals: Equal canoe inspector final. No: Pronator drift Sensory: Normal - Psychological Associated symptoms: Normal affect, Normal mood - Skin Skin Temperature: Warm Skin Moisture: Dry Skin Color: Normal Course - Re-evaluation Re-evalutation: 11/23/17 19:48 I called and spoke with Dr. Jean at [facility]. He is a neurosurgeon. He states that patient does not require transfer tonight. He asked me to bring the patient a CD and given to him. This has been done. He states he will see the patient in his office this week. I have informed the patient of this and he states he can get a ride and will be able to go to the appointment this week. Patient was instructed to bring the CD with him. Patient will be started on blood pressure medication. He will be given pain medication. I did discuss the patient's exam as well as CT findings with Dr. Jean. Dr. Jean felt that there was no need for any emergent evaluation or procedures this evening and that patient could safely be discharged home and seen this week in the office. - Vital Signs Vital signs: Temp Pulse Resp BP Pulse Ox 98.8 F 82 19 167/109 H 98 11/23/17 13:42 11/23/17 13:42 11/23/17 13:42 11/23/17 13:42 11/23/17 13:42 - Laboratory Result Diagrams: 11/23/17 16:24 11/23/17 16:24 Laboratory results interpreted by me: 11/23/17 11/23/17 16:24 16:24 RDW 15.3 H Monocytes % 14.0 H BUN 6 L Total Protein 8.4 H - Diagnostic Test Radiology reviewed: Image reviewed, Reports reviewed - CT scan shows no evidence of intracranial pathology. Patient did have a calcified possible aneurysm outside of the skull base. CTA does show patient to have a aneurysm outside of the skull base. Discharge - Discharge Clinical Impression: Internal carotid aneurysm Condition: Stable Disposition: HOME, SELF-CARE Instructions: Calcium Channel Blockers ([facility]), High Blood Pressure, Requiring Treatment ([facility]) Additional Instructions: Please call Dr. Mario Jean at first thing in the morning to arrange for an appointment this week. Ask to speak to Jackelyn. Dr. Jean said not having insurance will not be a problem. Please bring CD with you to your appointment with Dr. Jean. Prescriptions: Amlodipine Besylate [Norvasc 5 mg Tablet] 5 mg PO DAILY #30 tablet Hydrocodone/Acetaminophen [[place] 5-325 mg Tablet] 1 tab PO Q6 PRN 4 Days #12 tablet PRN Reason: Forms: Elevated Blood Pressure, Return to Work
[2017-11-23 20:02] VITALS: BP 186/109
== END 2017-11-23 20:06 | disposition home or self-care (01) ==
LOC: ER 13:38
DX: I67.1 Cerebral aneurysm, nonruptured (principal); I10 Essential (primary) hypertension; R51 Headache; F17.200 Nicotine dependence, unspecified, uncomplicated; Z82.49 Family history of ischemic heart disease and other diseases of the circulatory system
CPT/HCPCS: 36415; 70450; 70496; 80053; 85025; 99284